=== PATIENT | female | born 1980 | race Caucasian/White ===

== ENCOUNTER 2016-07-20 23:56 | Emergency (ER) | payer BC ==
[~2016-07-20] VITALS: Ht 170.2 cm; Wt 92.7 kg
[2016-07-21 00:55] VITALS: BP 150/91; PULSE 100; TEMP 98.3
[2016-07-21] MEDS ORDERED: PROAMATINE10 MG PO ×2 (00:57)
[2016-07-21] MEDS ORDERED: AMITRIPTYLINE H10 M1 PO (00:57)
[2016-07-21] MEDS ORDERED: RIBOFLAVIN100 MG PO (00:58)
== END 2016-07-21 02:49 | disposition home or self-care (01) ==
LOC: COL.ER 23:56
DX: J02.9 Acute pharyngitis, unspecified (principal)